=== PATIENT | female | born 1985 | race Caucasian/White ===

== ENCOUNTER 2020-02-01 09:06 | Inpatient (IN) | payer MEDICAID, OTHER ==
[~2020-02-01] VITALS: Ht 162.6 cm; Wt 156.2 kg
[2020-02-01] MEDS ORDERED: methylPREDNISolone SOD SUCC 125 MG/2 ML VL IV ONE (09:30)
[2020-02-01] MEDS ORDERED: IPRATROPIUM BROM 0.5 MG/2.5ML INH SOL HHN ONE (09:30)
[2020-02-01] MEDS ORDERED: ALBUTEROL SULF 2.5 MG/0.5ML(0.5%) NEB SOLN HHN ONE (09:30)
[2020-02-01] MEDS ORDERED: methylPREDNISolone SOD SUCC 125 MG/2 ML VL ONE (09:31)
[2020-02-01 10:27] LABS: Basophils # (auto) 0 10 ^3/uL (0-0.2); Eosinophils # (auto) 0 10 ^3/uL (0-0.8); Hemoglobin 13.4 g/dL (12.2-16.2); Lymphocytes # (auto) 1.1 10 ^3/uL (0.4-5.4); Monocytes # (auto) 0.5 10 ^3/uL (0-1.3)
[2020-02-01 10:29] LABS: Basophils % (auto) 0.3 % (0.0-2.0); Hematocrit 41.9 % (36.0-46.0); Mean Corpuscular Hemoglobin 25.2 pg (28.0-32.0); Mean Corpuscular Hgb Conc. 31.9 g/dL (32.0-36.0); Monocytes % (auto) 4.7 % (0.0-12.0); Neutrophils # (auto) 8.2 10 ^3/uL (1.6-8.6); Platelet Count (auto) 307 10^3/uL (140-450); Red Cell Distribution Width 16.3 % (11.8-14.3); White Blood Cell 9.7 10^3/uL (4.4-10.8)
[2020-02-01 10:37] LABS: Chloride 108 mmol/L (98-107); Sodium 137 mmol/L (136-145)
[2020-02-01 10:47] LABS: Alanine Aminotransferase 17 U/L (13-56); Albumin 2.9 g/dL (3.4-5.0); Alkaline Phosphatase 70 U/L (45-117); Anion Gap 7 (5-15); Aspartate Aminotransferase 15 U/L (15-37); BUN/Creatinine Ratio 7.4; Bilirubin, Total 0.5 mg/dL (0.2-1.0); Blood Urea Nitrogen 7 mg/dL (7-18); Calcium 8.2 mg/dL (8.5-10.1); Carbon Dioxide 22 mmol/L (21-32); GFR African American 86 mL/min; GFR Non-African American 71 mL/min; Glucose 100 mg/dL (74-106); Total Protein 7.1 g/dL (6.4-8.2)
[2020-02-01 11:10] LABS: Lactic Acid w/Reflex 2.6 mmol/L (0.4-2.0)
[2020-02-01] MEDS ORDERED: ACETAMINOPHEN 325 MG TAB PO ONE (11:30)
[2020-02-01] MEDS ORDERED: IOHEXOL 350 MG/ML 100ML IJ ONE ×2 (12:09→13:57)
[2020-02-01] MEDS ORDERED: MORPHINE SULF INJ 2 MG/ML SYRINGE 1ML IV PRN ×2 (12:30)
[2020-02-01] MEDS ORDERED: ONDANSETRON HCL 4 MG/2 ML VIAL IV PRN (12:30)
[2020-02-01] MEDS ORDERED: NITROGLYCERIN 0.4 MG SL TAB SL PRN (12:30)
[2020-02-01 12:41] VITALS: BP 160/61
[2020-02-01 12:57] LABS: Urine Bacteria NONE SEEN /hpf (None Seen); Urine Blood Negative /uL (Negative); Urine Specific Gravity 1.029 (1.001-1.035); Urine WBC <1 /hpf (0 - 5)
[2020-02-01] MEDS: SODIUM CHLORIDE 0.9% 1,000 ML IV SCH (14:05)
--- NOTE | 2020-02-01 14:33 | NUR ---
Telemetry admit from ER ZAYRAESTEFANY admitted to Telemetry unit after SBAR received. Patient oriented to Nisreen Odonnell RN, unit, room, bed, and unit policies regarding patient care and visiting hours. Patient now on continuous telemetry monitoring, tele box # 39 and telemetry reading on arrival to unit is 117 ST. Patient placed on bedside oxygen at 6 LPM, weighed by bed scale and encouraged to call if she needs something. All questions and concerns addressed, patient verbalized understanding. Note: Patient sitting up in bed, coughing/colds noted.
[2020-02-01 14:40] VITALS: BP 129/72
--- NOTE | 2020-02-01 15:00 | NUR ---
Called Respiratory Therapist for breathing treatment.
--- NOTE | 2020-02-01 15:10 | NUR ---
Damián Quick called back, made aware patient's O2 Sat = 89 to 90% on O2 at 6 LPM. Damián ordered Albuterol/Atrovent Q3 PRN for SOB, put on Oxymizer.
[2020-02-01] MEDS ORDERED: ALBUTEROL SULF 2.5 MG/0.5ML(0.5%) NEB SOLN NEB PRN (15:15)
[2020-02-01] MEDS ORDERED: IPRATROPIUM BROM 0.5 MG/2.5ML INH SOL NEB PRN (15:15)
--- NOTE | 2020-02-01 15:15 | NUR ---
RECD PAGE FOR BREATHING TX. PT ASSESSED AND IS SOB. PRN MED NEB ADMINISTERED ORDERED. LUNGS ARE DIMINISHED. NO ADVERSE REACTIONS TO MEDICATION. PT APPEARS ANXIOUS. COACHED ON DEEP SLOW BREATHING TECHNIQUES AFTER TX. PT APPEARS MORE COMFORTABLE. ALSO PLACED PT ON 10 LITERS OXYMIZER, SPO2 93%.
[2020-02-01 17:00] VITALS: BP 140/69
[2020-02-01] MEDS ORDERED: IPRATROPIUM BROM 0.5 MG/2.5ML INH SOL NEB SCH (18:00)
[2020-02-01] MEDS ORDERED: ALBUTEROL SULF 2.5 MG/0.5ML(0.5%) NEB SOLN NEB SCH (18:00)
--- NOTE | 2020-02-01 19:40 | NUR ---
OPENING NOTE- NOC SHIFT PATIENT IS ALERT AND ORIENTED X4 SITTING UP IN BED. PATIENT IS WEARING OXIMIZER AT 13.5L. PATIENT BREATHING HEAVILY. RT IS AT BEDSIDE ADMINISTERING BREATHING TREATMENT. PATIENT WILL BE TRANSFERRING TO [facility] PER MD ORDERS. BED IS LOCKED AT LOWEST, BED RAILS UP X2. PERSONAL BELONGINGS WITHIN REACH. DISCUSSED POC WITH PATIENT; PATIENT VERBALIZED UNDERSTANDING. WILL FOLLOW UP WITH TRANSFER TO [facility].
--- NOTE | 2020-02-01 19:45 | NUR ---
RT AT BEDSIDE
--- NOTE | 2020-02-01 20:00 | NUR ---
DR LAL AT BEDSIDE
--- NOTE | 2020-02-01 20:13 | NUR ---
INFORMED LIZA RESP THERAPIST TO CALL DR LAL PER REQUEST.
[2020-02-01] MEDS ORDERED: MAGNESIUM SULFATE 1GM/100ML 100 ML IV ONE (20:15)
[2020-02-01] MEDS ORDERED: ALBUTEROL SULF 2.5 MG/0.5ML(0.5%) NEB SOLN NEB ONE (20:15)
[2020-02-01] MEDS ORDERED: ALBUTEROL SULF 2.5 MG/0.5ML(0.5%) NEB SOLN ONE (20:16)
[2020-02-01] MEDS ORDERED: FUROSEMIDE 20 MG/2 ML VIAL IV ONE (20:30)
--- NOTE | 2020-02-01 20:45 | NUR ---
PT ADMITTED TO [facility] ASSUMED CARE OF PT. AWAKE AND ALERT. RT SET UP HIGH FLOW. PT ORIENTED TO RN AND CONNECTED TO BEDSIDE MONITOR. CALL LIGHT WITHIN REACH AND BED LOCKED. WILL CONTINUE TO MONITOR.
--- NOTE | 2020-02-01 20:49 | NUR ---
PATIENT TRANSFERRED TO [facility] REPORT GIVEN TO JAROD. ALL PERSONAL BELONGINGS WITH PATIENT. PATIENT IS ALERT AND ORIENTED X4.
[2020-02-01 21:03] VITALS: BP 138/64
[2020-02-01] MEDS: HYDROcodone-ACET 5/325MG TAB PO PRN (21:06)
[2020-02-01] MEDS: methylPREDNISolone SOD SUCC 125 MG/2 ML VL IV SCH (21:45)
[2020-02-01] MEDS ORDERED: BUDESONIDE (INHALATION) 0.5 MG/2 ML NEB NEB SCH (22:00)
[2020-02-01] MEDS: ALPRAZolam 0.25 MG TAB PO SCH (22:40)
[2020-02-01 22:43] VITALS: BP 111/42
[2020-02-01] MEDS: IPRATROPIUM BROM 0.5 MG/2.5ML INH SOL NEB SCH (22:52)
[2020-02-01] MEDS: ALBUTEROL SULF 2.5 MG/0.5ML(0.5%) NEB SOLN NEB SCH (22:52)
[2020-02-01] MEDS: BUDESONIDE (INHALATION) 0.5 MG/2 ML NEB NEB SCH (22:52)
[2020-02-02] VITALS (8 sets, daily range): BP systolic 103–155; BP diastolic 48–91
[2020-02-02] MEDS: SODIUM CHLORIDE 0.9% 1,000 ML IV SCH
[2020-02-02] MEDS: IPRATROPIUM BROM 0.5 MG/2.5ML INH SOL NEB SCH ×6 (02:22→22:23)
[2020-02-02] MEDS: ALBUTEROL SULF 2.5 MG/0.5ML(0.5%) NEB SOLN NEB SCH ×6 (02:22→22:23)
--- NOTE | 2020-02-02 03:47 | NUR ---
CURRENTLY RESTING CONNECTED TO HIGH FLOW DEVICE. APPEARS TO BE RESTING. WILL CONTINUE TO MONITOR.
[2020-02-02] MEDS: methylPREDNISolone SOD SUCC 125 MG/2 ML VL IV SCH ×3 (05:57→20:35)
[2020-02-02] MEDS: ALPRAZolam 0.25 MG TAB PO SCH ×3 (05:57→22:07)
--- NOTE | 2020-02-02 06:07 | NUR ---
MORNING LAB- STILL PENDING.
--- NOTE | 2020-02-02 06:38 | NUR ---
PT STILL ON HIGH FLOW 50% O2 AND 40 L.
--- NOTE | 2020-02-02 06:41 | NUR ---
PT COUGHING STATES HAVING DIFFICULT TIME CATCHING BREATH. CURRENTLY SITTING UP AND ON HIGH FLOW. NOTIFIED RT.
[2020-02-02] MEDS: BUDESONIDE (INHALATION) 0.5 MG/2 ML NEB NEB SCH ×2 (06:50→18:28)
--- NOTE | 2020-02-02 07:45 | NUR ---
OPENING SHIFT NOTE: Received report from NOC RNNikolai. Assumed care of patient. Patient lying in bed, A&Ox4, denies pain. Patient on high flow O2 at 50%O2/40L with O2 sats 94%. 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 IV to left FA #20 saline lock, flushes and no blood return. Patient with BSC at bedside and able to turn self. Bed in lowest position, rails x3 up and call light within reach. Updated on plan of care and will continue to monitor.
[2020-02-02 07:50] LABS: Basophils # (auto) 0 10 ^3/uL (0-0.2); Eosinophils # (auto) 0 10 ^3/uL (0-0.8); Hematocrit 40.3 % (36.0-46.0); Hemoglobin 12.9 g/dL (12.2-16.2); Lymphocytes # (auto) 0.5 10 ^3/uL (0.4-5.4); Lymphocytes % (auto) 5.8 % (10.0-50.0); Mean Corpuscular Hemoglobin 25.2 pg (28.0-32.0); Mean Corpuscular Hgb Conc. 31.9 g/dL (32.0-36.0); Monocytes # (auto) 0.1 10 ^3/uL (0-1.3); Monocytes % (auto) 1.6 % (0.0-12.0); Neutrophils % (auto) 92.6 % (37.0-80.0); Platelet Count (auto) 321 10^3/uL (140-450); Red Cell Distribution Width 16.1 % (11.8-14.3); White Blood Cell 8.7 10^3/uL (4.4-10.8)
[2020-02-02 08:42] LABS: Anion Gap 8 (5-15); BUN/Creatinine Ratio 12.8; Blood Urea Nitrogen 10 mg/dL (7-18); Calcium 8.6 mg/dL (8.5-10.1); Carbon Dioxide 22 mmol/L (21-32); Chloride 108 mmol/L (98-107); GFR African American 107 mL/min; GFR Non-African American 89 mL/min; Glucose 160 mg/dL (74-106); Magnesium 2.8 mg/dL (1.6-2.6); Potassium 4.6 mmol/L (3.5-5.1); Sodium 138 mmol/L (136-145)
[2020-02-02] MEDS: FAMOTIDINE 20 MG TAB PO SCH (09:50)
[2020-02-02] MEDS: ENOXAPARIN SOD 40 MG/0.4 ML SYRINGE SC SCH ×2 (09:50→22:12)
--- NOTE | 2020-02-02 09:55 | NUR ---
Patient provided 1000 AM medications. Verified patient and ID band. Explained rationale for medication administration. Patient verbalized understanding and tolerated medications,
--- NOTE | 2020-02-02 12:07 | NUR ---
Dr Elder at bedside. Orders received.
[2020-02-02] MEDS ORDERED: amLODIPine BESYLATE 5 MG TAB PO ONE (12:15)
--- NOTE | 2020-02-02 12:15 | NUR ---
Spoke to Dr Lemons over the phone, updated on patient's status. Informed of patient's RR 30'-40's, saturation 90% - 96% at 40LPM oxygen, 50% FIO2 via Hi flow. Received telephone order to place patient on BIPAP and check ABG two hours after. Orders read back and verified. Will carry out.
--- NOTE | 2020-02-02 13:45 | NUR ---
Echocardiogram being done at bedside.
--- NOTE | 2020-02-02 14:23 | NUR ---
Assisted patient back into bed after using bedside commode. Patient states she feels like Bipap is suffocatig her. Respiratory rate is in the 40s. Respiratory paged. Dr Elder notified and orders received for beltran catheter.
--- NOTE | 2020-02-02 15:25 | NUR ---
Patient resting in bed with eyes closed. No signs/symptoms of pain. Patient remains on Bipap with resp rate 34. Patient awaiting to have ABG 2 hours post bipap initiation.
--- NOTE | 2020-02-02 15:35 | NUR ---
Dr Lemons at bedside to see patient. Orders received.
[2020-02-02] MEDS ORDERED: ALBUTEROL SULF 2.5 MG/0.5ML(0.5%) NEB SOLN NEB ONE (16:00)
--- NOTE | 2020-02-02 16:13 | NUR ---
16fr Hopkins catheter inserted using sterile technique. 100ml clear yellow urine returned upon insertion. Patient tolerated well.
--- NOTE | 2020-02-02 16:59 | NUR ---
Patient remains on Bipap 14/6 at 40% fiO2 with RR 35 and O2 sats 97%. Hopkins in place draining to gravity, clear yellow urine. Patient with no S/S of distress, denies pain.
--- NOTE | 2020-02-02 17:53 | NUR ---
T/C from pharmacist who wants clarification on magnesium order from Dr Lemons. Spoke to Dr Lemons who wants 2mg Magnesium Sulfate to help with patient's asthma and to draw a mag level in the am. Relayed info to pharmacist.
[2020-02-02] MEDS: MAGNESIUM SULFATE 1GM/100ML 100 ML IV SCH ×2 (18:06→19:30)
[2020-02-02] MEDS: HYDROcodone-ACET 5/325MG TAB PO PRN (18:19)
--- NOTE | 2020-02-02 18:45 | NUR ---
Patient resting in bed and was recently medicated for pain. Patient remains on Bipap 14/6 with fiO2 40% with O2 sats at 96%. Patient with beltran to gravity draining clear yellow UOP. First bag of two, 1gm MagSulfate running in left AC #20. Report to be given to NOC Nikolai MENDEZ.
--- NOTE | 2020-02-02 19:20 | NUR ---
Opening Shift Note ASSUMED CARE OF PT IN ROOM 265. PT IS AWAKE AND ALERT. CONNECTED TO BIPAP MACHINE. COMPLETE PHYSICAL ASSESSMENT UNDER INTERVENTIONS.WILL CONTINUE TO MONITOR FOR CHANGES. BED LOCKED AT LOWEST POSITION AND CALL LIGHT WITHIN REACH.
[2020-02-02] MEDS ORDERED: methylPREDNISolone SOD SUCC 125 MG/2 ML VL IV SCH (22:00)
[2020-02-03] VITALS (7 sets, daily range): BP systolic 25–142; BP diastolic 60–83
[2020-02-03] MEDS: methylPREDNISolone SOD SUCC 125 MG/2 ML VL IV SCH ×4 (00:26→18:17)
--- NOTE | 2020-02-03 01:20 | NUR ---
PT APPEARS TO BE RESTING NO CHANGES NOTED. CONNECTED TO HIGH FLOW DEVICE. WILL CONTINUE TO MONITOR.
--- NOTE | 2020-02-03 02:13 | NUR ---
RT WITH PATIENT INCREASED O2 AND FLOW RATE.
[2020-02-03] MEDS: IPRATROPIUM BROM 0.5 MG/2.5ML INH SOL NEB SCH ×6 (02:15→21:54)
[2020-02-03] MEDS: ALBUTEROL SULF 2.5 MG/0.5ML(0.5%) NEB SOLN NEB SCH ×6 (02:15→21:54)
--- NOTE | 2020-02-03 04:17 | NUR ---
PT RESTING DOES NOT WANT BATH. STATING SHE WANTS TO REST AT THE MOMENT HAS HAD DIFFICULTY SLEEPING.
--- NOTE | 2020-02-03 04:35 | NUR ---
RT WITH PT STILL ON HIGH FLOW.
[2020-02-03] MEDS: BUDESONIDE (INHALATION) 0.5 MG/2 ML NEB NEB SCH ×2 (05:52→18:21)
[2020-02-03] MEDS: ALPRAZolam 0.25 MG TAB PO SCH ×3 (06:17→21:22)
--- NOTE | 2020-02-03 07:43 | NUR ---
CARE ENDORSED TO DAY NURSE REPORT GIVEN.
--- NOTE | 2020-02-03 08:00 | NUR ---
RECEIVED REPORT FROM NOC ANDREA OLIVERA. ASSUMED CARE OF PATIENT. PATIENT LYING IN BED, A&OX4 AND STATES PAIN IS 7/10 TO NECK AND LOWER BACK AND WILL BE MEDICATED WITH NORCO ORDERED. PATIENT ON HIGH FLOW AT FIO2 60% AND 45L WITH O2 SATS 96%. MUSE DRAINING TO GRAVITY CLEAR YELLOW URINE. PATIENT WITH PIV TO LEFT AC #20 THAT FLUSHES BUT DOESN'T RETURN BLOOD. BED IS IN LOWEST POSITION, RAILS X2 UP, ALARMS IN PLACE AND CALL LIGHT WITHIN REACH. UPDATED ON PLAN OF CARE. WILL CONTINUE TO MONITOR.
[2020-02-03] MEDS: HYDROcodone-ACET 5/325MG TAB PO PRN ×2 (08:21→23:01)
--- NOTE | 2020-02-03 09:00 | NUR ---
PATIENT RESTING IN BED ON HIGH FLOW O2 AT 60% AND 45L WITH SATS 92%. PATIENT WITH NO S/S OF DISTRESS. STATES PAIN IS RELIEVED AFTER NORCO.
[2020-02-03] MEDS: ENOXAPARIN SOD 40 MG/0.4 ML SYRINGE SC SCH ×2 (10:07→21:22)
[2020-02-03] MEDS: amLODIPine BESYLATE 5 MG TAB PO SCH (10:07)
[2020-02-03] MEDS: FAMOTIDINE 20 MG TAB PO SCH (10:08)
[2020-02-03] MEDS: cefTRIAXone 1GM/50ML D5W 50 ML IV SCH (10:14)
--- NOTE | 2020-02-03 10:15 | NUR ---
MEDICATED PATIENT WITH 1000 AM MEDICATION. VERIFIED PATIENT AND FIVE RIGHTS. EXPLAINED RATIONALE OF EACH MEDICATION AND PATIENT VERBALIZED UNDERSTANDING. PATIENT TOLERATED MEDICATIONS WITH NO DIFFICULTY. WILL CONTINUE TO MONITOR.
--- NOTE | 2020-02-03 11:15 | NUR ---
DR NAJERA TO SEE PATIENT. ORDERS RECEIVED.
[2020-02-03 11:46] LABS: BUN/Creatinine Ratio 17.7; Calcium 8.5 mg/dL (8.5-10.1); Potassium 5.2 mmol/L (3.5-5.1)
--- NOTE | 2020-02-03 12:29 | NUR ---
BMP RESULTS BACK. NOTIFIED DR NAJERA VIA TELEPHONE OF K 5.2. MD STATES WILL LOOK AT AND ADDRESS NEEDED.
[2020-02-03] MEDS ORDERED: FUROSEMIDE 40 MG/4 ML VIAL IV ONE (12:30)
[2020-02-03] MEDS ORDERED: SODIUM CHLORIDE 0.9% 500 ML IV ONE (12:30)
--- NOTE | 2020-02-03 13:00 | NUR ---
STARTED 500ML NS BOLUS TO LEFT AC. PATIENT STATES SHE CAN'T TOLERATE AT OF 500ML/HR, DECREASED RATE TO 250ML/HR. IV SITE REMAINS ASYMPTOMATIC. WILL CONTINUE TO MONITOR.
--- NOTE | 2020-02-03 14:08 | NUR ---
PATIENT IV TO LEFT AC INFILTRATED. SITE IS COOL AND FIRM TO TOUCH. HELD IV FLUID BOLUS. PATIENT IS A DIFFICULT STICK. PAGED PICC LINE/MIDLINE RN RAMIN TO ATTEMPT A MIDLINE INSERTION.
--- NOTE | 2020-02-03 15:07 | NUR ---
PAGED PLACE TO DR NAJERA TO UPDATE MD OF LOST IV AND NEED FOR MIDLINE.
--- NOTE | 2020-02-03 15:38 | NUR ---
RAMIN PICC LINE RN AT BEDSIDE TO ATTEMPT TO START A MIDLINE OR ADDITIONAL IV.
--- NOTE | 2020-02-03 15:52 | NUR ---
Midline Placement: Patient educated on need for midline placement. All risks and benefits explained and all questions and concerns addresses prior to procedure. 18g/10cm midline inserted via LEFT CEPHALIC vein using Ultrasound. Sterile technique utilized. Blood return obtained from SINGLE lumen and flushed easily with NS using proper technique. Midline secured with saline lock; biodisc and occlusive dressing applied. Primary RN notified. Midline lot # [id number].
--- NOTE | 2020-02-03 16:50 | NUR ---
PATIENT HAVING A COUGHING FIT AND UNABLE TO CATCH BREATH. PATIENT REQUESTING TO BE PLACED BACK ON BIPAP. RT TREMAYNE CALLED AND PLACED BACK ON BIPAP AT 14/6 AND FIO2 40%.
--- NOTE | 2020-02-03 18:23 | NUR ---
RT NOTE RECEIVED PT ON BIPAP B10 WITH MEDIUM MASK ON STATED SETTINGS. BIPAP IS PLUGGED TO RED OUTLET. ALARMS ARE ON AND AUDIBLE AT NURSES STATION. AMBU BAG AT BEDSIDE AND CONNECTED TO O2 SOURCE. CONT POX PER [facility] PROTOCOL. BILATERAL BS ARE EXPIRATORY WHEEZES. HHN GIVEN INLINE WITH 2.5 MG ALBUTEROL, 0.5 MG ATROVENT AND 1 MG PULMICORT. PT APPEARS TO TOLERATE HHN TX WELL. CONT ORDERED POX 93% Addendum: 02/03/20 at 1840 by Ale Westbrook RT Amended: Links added.
--- NOTE | 2020-02-03 18:45 | NUR ---
PATIENT RESTING IN BED ON BIPAP 14/6 AT FIO2 40%. PATIENT REMAINS A&OX4 AND DENIES PAIN. PATIENT'S PAIN HAS BEEN CONTROLLED THROUGHOUT SHIFT WITH NORCO. MUSE CONTINUES TO DRAIN TO GRAVITY CLEAR YELLOW OUTPUT. REPORT TO BE GIVEN TO JAY RODRIGUEZ RN.
--- NOTE | 2020-02-03 19:45 | NUR ---
Opening Shift Note: A&Ox4, resting in bed. Currently on high flow FiO2 of 60%; patient states she does not wear oxygen at home; pain level 4/10, and at baseline ambulates independently without assistive devices; currently bedrest related to increased shortness of breath with exertion. Bed locked in lowest position, side rails up x2, and call light within reach. IV midline LUE inserted on 02/03/20. Hopkins inserted on 02/02/20 for strict I/O. Skin intact with no open wounds. Intermittent use of Bipap noted. POC discussed with patient and questions answered. Will continue to round and reposition prn.
--- NOTE | 2020-02-03 21:58 | NUR ---
RT NOTE PT WAS SEEN BY RT FOR ROUTINE HIGH FLOW CHECK AND HHN TX. PT TOLERATES HHN INLINE WELL VIA AEROGEN. FIO2 TITRATED TO 55% AT THIS TIME. ANDREA THOMPSON NOTIFIED. PT APPEARS TO TOLERATE WELL. BS ARE CLEAR/DIM AT THIS TIME. CONT ORDERED Addendum: 02/03/20 at 2159 by Ale Westbrook RT Amended: Links added.
[2020-02-04] VITALS (10 sets, daily range): BP systolic 123–152; BP diastolic 69–85
[2020-02-04] MEDS: IPRATROPIUM BROM 0.5 MG/2.5ML INH SOL NEB SCH ×6 (02:30→23:23)
[2020-02-04] MEDS: ALBUTEROL SULF 2.5 MG/0.5ML(0.5%) NEB SOLN NEB SCH ×6 (02:30→23:22)
--- NOTE | 2020-02-04 05:30 | NUR ---
Patient bathe/linen change Patient given complete CHG bath. Skin integrity assessed for any changes. Linens and gown changed. Patient repositioned for comfort.
[2020-02-04 06:00] LABS: BUN/Creatinine Ratio 25.3; Calcium 8.1 mg/dL (8.5-10.1); Potassium 4.6 mmol/L (3.5-5.1)
[2020-02-04] MEDS: ALPRAZolam 0.25 MG TAB PO SCH ×3 (06:00→21:09)
[2020-02-04] MEDS: methylPREDNISolone SOD SUCC 125 MG/2 ML VL IV SCH ×5 (06:00→23:42)
--- NOTE | 2020-02-04 07:30 | NUR ---
RECEIVED PATIENT SITTING UP IN THE BED, A/O TIME S4 TO NAME BEING CALLED, O2 AT 45L BY THE HIGH FLOW, MUSE TO GRAVITY, MIDLINE TO THE ANA WITH ANTIBIOTICS INFUSING BY THE IV PUMP, DENIES PAIN AND STATES SHE FEELS BETTER TODAY
[2020-02-04] MEDS: cefTRIAXone 1GM/50ML D5W 50 ML IV SCH (08:31)
--- NOTE | 2020-02-04 08:35 | NUR ---
EATING BREAKFAST BUT ATE VERY LITTLE
--- NOTE | 2020-02-04 09:45 | NUR ---
DR LAL IN TO SEE THE PATIENT
[2020-02-04] MEDS: amLODIPine BESYLATE 5 MG TAB PO SCH (10:05)
--- NOTE | 2020-02-04 10:05 | NUR ---
EXPLAIN MEDICATIONS TO THE PATIENT REGARDING THE DOSAGE, USAGE, AND THE SIDE EFFECTS, VERBALIZED THAT SHE UNDERSTOOD AND MMES GIVEN ORDERED
[2020-02-04] MEDS: ENOXAPARIN SOD 40 MG/0.4 ML SYRINGE SC SCH ×2 (10:06→21:09)
[2020-02-04] MEDS: FAMOTIDINE 20 MG TAB PO SCH (10:06)
--- NOTE | 2020-02-04 10:20 | NUR ---
FRIENDS IN TO VISIT
[2020-02-04] MEDS: BUDESONIDE (INHALATION) 0.5 MG/2 ML NEB NEB SCH ×2 (10:29→19:16)
--- NOTE | 2020-02-04 11:30 | NUR ---
SITTING UP IN BED WATCHING TV,
--- NOTE | 2020-02-04 12:15 | NUR ---
DR NAJERA IN TO SEE THE PATIENT,
--- NOTE | 2020-02-04 13:46 | NUR ---
SITTING UP IN BED EATING HER LUNCH NO COMPLAINTS
--- NOTE | 2020-02-04 14:30 | NUR ---
RT IN WORKING WITH THE PATIENT
--- NOTE | 2020-02-04 15:30 | NUR ---
WATCHING TV, NO COMPLAINTS
--- NOTE | 2020-02-04 16:17 | NUR ---
SEMI FOWLERS IN BED WITH EYES CLOSED, NO COMPLAINTS
--- NOTE | 2020-02-04 17:07 | NUR ---
SITTING UP IN BED ,FAMILY IN TO VISIT
[2020-02-04] MEDS: HYDROcodone-ACET 5/325MG TAB PO PRN (18:02)
--- NOTE | 2020-02-04 18:02 | NUR ---
MEDICATED FOR PAIN TO THE BACK WITH NORCO 06/09, SITTING UP IN THE BED, WATCHING TV, O2 AT 45L AND 44% BY THE HIGH FLOW, MUSE TO GRAVITY, ANA MIDLINE FLUSHED AND PATENT, WATCHING TV, ABLE TO TURN SELF IN THE BED, WILL CONTINUE TO MONITOR AND GIVE REPORT TO THE NEXT SHIFT
--- NOTE | 2020-02-04 18:26 | NUR ---
SITTING UP IN THE BED TO EAT HER DINNER, AND FAMILY AT THE BEDSIDE
--- NOTE | 2020-02-04 19:45 | NUR ---
Opening Shift Note: A&Ox4, resting in bed. Currently on high flow FiO2 of 40%/45 L; patient states she does not wear oxygen at home; pain level 2/10, and at baseline ambulates independently without assistive devices; currently SBA pivot to the chair related to increased shortness of breath with exertion. Bed locked in lowest position, side rails up x2, and call light within reach. IV midline LUE inserted on 02/03/20. Hopkins inserted on 02/02/20 for strict I/O. Skin intact with no open wounds. Intermittent use of Bipap noted. POC discussed with patient and questions answered. Will continue to round and reposition prn.
[2020-02-05] VITALS (7 sets, daily range): BP systolic 132–141; BP diastolic 74–83
[2020-02-05] MEDS: HYDROcodone-ACET 5/325MG TAB PO PRN ×4 (01:29→22:51)
[2020-02-05] MEDS: ALBUTEROL SULF 2.5 MG/0.5ML(0.5%) NEB SOLN NEB SCH ×6 (02:00→21:57)
[2020-02-05] MEDS: IPRATROPIUM BROM 0.5 MG/2.5ML INH SOL NEB SCH ×6 (02:00→21:57)
--- NOTE | 2020-02-05 05:00 | NUR ---
Patient bathe/linen change Patient given complete CHG bath. Skin integrity assessed for any changes. Linens and gown changed. Patient repositioned for comfort.
[2020-02-05 05:47] LABS: Basophils # (auto) 0 10 ^3/uL (0-0.2); Basophils % (auto) 0.3 % (0.0-2.0); Eosinophils # (auto) 0 10 ^3/uL (0-0.8); Hematocrit 40.1 % (36.0-46.0); Hemoglobin 13.1 g/dL (12.2-16.2); Lymphocytes # (auto) 0.7 10 ^3/uL (0.4-5.4); Lymphocytes % (auto) 10.6 % (10.0-50.0); Mean Corpuscular Hemoglobin 25.9 pg (28.0-32.0); Mean Corpuscular Hgb Conc. 32.7 g/dL (32.0-36.0); Monocytes # (auto) 0.2 10 ^3/uL (0-1.3); Monocytes % (auto) 2.4 % (0.0-12.0); Neutrophils # (auto) 5.5 10 ^3/uL (1.6-8.6); Neutrophils % (auto) 86.7 % (37.0-80.0); Platelet Count (auto) 244 10^3/uL (140-450); Red Blood Cells 5.08 10^6/uL (4.0-5.20); Red Cell Distribution Width 15.4 % (11.8-14.3); White Blood Cell 6.4 10^3/uL (4.4-10.8)
[2020-02-05 06:01] LABS: BUN/Creatinine Ratio 25.6; Calcium 8.3 mg/dL (8.5-10.1); Potassium 4.8 mmol/L (3.5-5.1)
[2020-02-05] MEDS: methylPREDNISolone SOD SUCC 125 MG/2 ML VL IV SCH ×3 (06:13→18:37)
[2020-02-05] MEDS: ALPRAZolam 0.25 MG TAB PO SCH ×3 (06:14→21:28)
--- NOTE | 2020-02-05 07:10 | NUR ---
OPENING NOTE SHIT REPORT RECEIVED AND ASSUMED CARE OF PT FROM JAY
[2020-02-05] MEDS: BUDESONIDE (INHALATION) 0.5 MG/2 ML NEB NEB SCH ×2 (07:14→17:58)
[2020-02-05] MEDS: cefTRIAXone 1GM/50ML D5W 50 ML IV SCH (09:23)
[2020-02-05] MEDS: ENOXAPARIN SOD 40 MG/0.4 ML SYRINGE SC SCH ×2 (09:31→21:28)
[2020-02-05] MEDS: amLODIPine BESYLATE 5 MG TAB PO SCH (09:33)
[2020-02-05] MEDS: FAMOTIDINE 20 MG TAB PO SCH (09:34)
--- NOTE | 2020-02-05 11:23 | NUR ---
DR. RIBERA AT BEDSIDE ORDERS RECEIVED
[2020-02-05] MEDS ORDERED: FUROSEMIDE 40 MG/4 ML VIAL IV ONE (11:30)
[2020-02-05] MEDS ORDERED: POTASSIUM CHL 20 Meq TABLET PO ONE (15:00)
--- NOTE | 2020-02-05 15:00 | NUR ---
DR. SHIPMAN AT BEDSIDE ORDERS RECEIVED
--- NOTE | 2020-02-05 19:21 | NUR ---
CLOSING NOTE SHIFT REPORT GIVE BACK AND CARE ENDORSED TO JAY MENDEZ
--- NOTE | 2020-02-05 19:45 | NUR ---
Opening Shift Note: A&Ox4, resting in bed. Currently on high flow FiO2 of 45%/45 L; patient states she does not wear oxygen at home; pain level 2/10, and at baseline ambulates independently without assistive devices; currently SBA pivot to the chair related to increased shortness of breath with exertion. Bed locked in lowest position, side rails up x2, and call light within reach. IV midline LUE inserted on 02/03/20. Hopkins inserted on 02/02/20 for strict I/O. Skin intact with no open wounds. Intermittent use of Bipap noted. POC discussed with patient and questions answered. Will continue to round and reposition prn.
[2020-02-06] VITALS: BP 110/56
[2020-02-06] MEDS: methylPREDNISolone SOD SUCC 125 MG/2 ML VL IV SCH ×3 (00:07→12:23)
[2020-02-06] MEDS: ALBUTEROL SULF 2.5 MG/0.5ML(0.5%) NEB SOLN NEB SCH ×6 (03:13→22:02)
[2020-02-06] MEDS: IPRATROPIUM BROM 0.5 MG/2.5ML INH SOL NEB SCH ×6 (03:13→22:02)
[2020-02-06 04:00] VITALS: BP 96/50
--- NOTE | 2020-02-06 06:30 | NUR ---
Patient bathe/linen change Patient given complete CHG bath. Skin integrity assessed for any changes. Linens and gown changed. Patient repositioned for comfort.
[2020-02-06 06:33] LABS: Basophils # (auto) 0 10 ^3/uL (0-0.2); Basophils % (auto) 0.1 % (0.0-2.0); Eosinophils # (auto) 0 10 ^3/uL (0-0.8); Hematocrit 42.4 % (36.0-46.0); Hemoglobin 13.6 g/dL (12.2-16.2); Lymphocytes # (auto) 0.6 10 ^3/uL (0.4-5.4); Lymphocytes % (auto) 10.3 % (10.0-50.0); Mean Corpuscular Hemoglobin 25.3 pg (28.0-32.0); Mean Corpuscular Hgb Conc. 32.1 g/dL (32.0-36.0); Mean Corpuscular Volume 78.9 fL (80.0-100.0); Monocytes # (auto) 0.1 10 ^3/uL (0-1.3); Monocytes % (auto) 2.5 % (0.0-12.0); Neutrophils # (auto) 4.7 10 ^3/uL (1.6-8.6); Neutrophils % (auto) 87.1 % (37.0-80.0); Nucleated Red Blood Cells % 0.1 %; Platelet Count (auto) 204 10^3/uL (140-450); Red Blood Cells 5.38 10^6/uL (4.0-5.20); Red Cell Distribution Width 15.4 % (11.8-14.3); White Blood Cell 5.4 10^3/uL (4.4-10.8)
[2020-02-06] MEDS: ALPRAZolam 0.25 MG TAB PO SCH ×3 (06:38→21:58)
[2020-02-06 06:52] LABS: Calcium 8.2 mg/dL (8.5-10.1); Potassium 4.4 mmol/L (3.5-5.1)
[2020-02-06 06:55] LABS: BUN/Creatinine Ratio 28.4
[2020-02-06] MEDS: BUDESONIDE (INHALATION) 0.5 MG/2 ML NEB NEB SCH ×2 (07:27→18:30)
--- NOTE | 2020-02-06 07:45 | NUR ---
RECEIVED REPORT FROM NOC RNJAY. ASSUMED CARE OF PATIENT. PATIENT LYING COMFORTABLY IN BED, A&OX4, DENIES PAIN. PATIENT ON HIGH FLOW O2 AT 45%/45L WITH O2 SATS 90%. LEFT UPPER ARM MIDLINE IN PLACE WHICH FLUSHES AND RETURNS BLOOD. MUSE DRAINING TO GRAVITY CLEAR YELLOW URINE. BED IN LOWEST POSITION, RAILS X2 UP, ALARMS IN PLACE AND CALL LIGHT WITHIN REACH. UPDATED ON PLAN OF CARE. WILL CONTINUE TO MONITOR Q1HR/PRN.
[2020-02-06 07:52] VITALS: BP 146/82
[2020-02-06] MEDS: cefTRIAXone 1GM/50ML D5W 50 ML IV SCH (09:12)
--- NOTE | 2020-02-06 10:30 | NUR ---
PATIENT RESTING IN BED. NO S/S OF DISTRESS. WILL CONTINUE TO MONITOR.
[2020-02-06] MEDS: ENOXAPARIN SOD 40 MG/0.4 ML SYRINGE SC SCH ×2 (10:33→21:57)
[2020-02-06] MEDS: FAMOTIDINE 20 MG TAB PO SCH (10:33)
[2020-02-06] MEDS: FUROSEMIDE 40 MG/4 ML VIAL IV SCH (10:33)
[2020-02-06] MEDS: POTASSIUM CHL 20 Meq TABLET PO SCH (10:33)
--- NOTE | 2020-02-06 11:39 | NUR ---
FOOD SERVICE HELPER AT BEDSIDE.
[2020-02-06 12:00] VITALS: BP 141/68
--- NOTE | 2020-02-06 14:27 | NUR ---
DR SHIPMAN AT BEDSIDE AND EXAMINED PATIENT.
[2020-02-06] MEDS: HYDROcodone-ACET 5/325MG TAB PO PRN (15:41)
--- NOTE | 2020-02-06 15:45 | NUR ---
PATIENT C/O PAIN TO NECK AND BACK / ALONG WITH UNEASINESS TO STOMACH. PATIENT ASKING WHEN SHE CAN RECEIVE PEPCID AGAIN. INFORMED PATIENT SHE WILL GET PEPCID AGAIN AT 2200 AND OFFERED CRACKERS TO HELP WITH STOMACH. PATIENT REFUSED CRACKERS AND SAID SHE CAN TOLERATE PAIN MEDICATION ALONE.
[2020-02-06 15:58] VITALS: BP 133/79
[2020-02-06] MEDS: FERROUS SULFATE 325 MG TAB PO SCH (17:48)
--- NOTE | 2020-02-06 18:42 | NUR ---
PATIENT SITTING UP IN BED EATING DINNER. NO S/S OF DISTRESS. PATIENT DENIES PAIN. PATIENT REMAINS ON HIGH FLOW O2 AT FIO2 45% ON 45L. MUSE CONTINUES TO DRAIN TO GRAVITY CLEAR YELLOW URINE. PATIENT IS ABLE TO TOLERATE GETTING OUT OF BED TO BSC WITHOUT GETTING OVER EXERTED. REPORT TO BE GIVEN TO ONCOMING RN.
--- NOTE | 2020-02-06 19:30 | NUR ---
Opening Shift Note A&Ox4, resting in bed. Currently on high flow FiO2 of 45%/45 L; pain level 310, currently standby assist pivot to the chair related to increased shortness of breath with exertion. Bed locked in lowest position, side rails up x2, and call light within reach. IV midline LUE inserted on 02/03/20. Hopkins inserted on 02/02/20 for strict I/O. Skin intact with no open wounds. POC discussed with patient and questions answered. Will continue to round and reposition PRN
[2020-02-06 20:00] VITALS: BP 140/73
[2020-02-06] MEDS: methylPREDNISolone SOD SUCC 40 MG/ML VL IV SCH (21:56)
[2020-02-06] MEDS: METOPROLOL TARTRATE 25 MG TAB PO SCH ×2 (21:58→22:00)
--- NOTE | 2020-02-06 22:00 | NUR ---
MEDICATION Scheduled medication Metoprolol for 2200 held at this time due to patient having history of heart rate dropping into 40s while sleeping. 2200 Metoprolol not administered (see emar). Will continue to monitor
[2020-02-07] VITALS (9 sets, daily range): BP systolic 113–133; BP diastolic 53–81
[2020-02-07] MEDS: IPRATROPIUM BROM 0.5 MG/2.5ML INH SOL NEB SCH ×6 (02:21→22:20)
[2020-02-07] MEDS: ALBUTEROL SULF 2.5 MG/0.5ML(0.5%) NEB SOLN NEB SCH ×6 (02:22→22:20)
[2020-02-07] MEDS: methylPREDNISolone SOD SUCC 40 MG/ML VL IV SCH ×3 (03:44→20:39)
[2020-02-07] MEDS: ALPRAZolam 0.25 MG TAB PO SCH ×3 (06:10→21:12)
[2020-02-07 06:22] LABS: Potassium 4.5 mmol/L (3.5-5.1)
[2020-02-07 06:31] LABS: BUN/Creatinine Ratio 26.7; Calcium 8.2 mg/dL (8.5-10.1)
--- NOTE | 2020-02-07 07:30 | NUR ---
RECEIVED PATIENT SITTING UP IN THE BED, A/O TIMES 4, TO NAME BEING CALLED, O2 AT 45L AND 40% ON THE HIGH FLOW, MID LINE TO THE ANA FLUSHED AND PATENT, MUSE TO GRAVITY, DENIES PAIN, BUT STATES A LITTLE TIRED THIS MORNING
[2020-02-07] MEDS: FERROUS SULFATE 325 MG TAB PO SCH ×2 (08:21→17:51)
[2020-02-07] MEDS: cefTRIAXone 1GM/50ML D5W 50 ML IV SCH (08:22)
--- NOTE | 2020-02-07 08:30 | NUR ---
EATING BREAKFAST NO SOB NOTED
[2020-02-07] MEDS: POTASSIUM CHL 20 Meq TABLET PO SCH (10:00)
[2020-02-07] MEDS: FUROSEMIDE 40 MG/4 ML VIAL IV SCH (10:00)
[2020-02-07] MEDS: METOPROLOL TARTRATE 25 MG TAB PO SCH ×2 (10:00→20:40)
[2020-02-07] MEDS: FAMOTIDINE 20 MG TAB PO SCH (10:00)
[2020-02-07] MEDS: ENOXAPARIN SOD 40 MG/0.4 ML SYRINGE SC SCH ×2 (10:00→21:12)
--- NOTE | 2020-02-07 10:00 | NUR ---
EXPLAIN MEDICATIONS TO THE PATIENT REGARDING THE DOSAGE, USAGE AND THE SIDE EFFECTS, VERBALIZED SHE UNDERSTOOD AND MEDS GIVEN ORDERED
--- NOTE | 2020-02-07 10:30 | NUR ---
FAMILY IN TO VISIT WITH THE PATIENT
[2020-02-07] MEDS: BUDESONIDE (INHALATION) 0.5 MG/2 ML NEB NEB SCH ×2 (10:54→22:21)
--- NOTE | 2020-02-07 10:55 | NUR ---
BREATHING TREATMENT BEING GIVEN
--- NOTE | 2020-02-07 11:00 | NUR ---
STARTING TO WEAN THE PATIENT OFF THE HIGH FLOW DECREASED 30L AND 40%
--- NOTE | 2020-02-07 11:40 | NUR ---
DR LAL IN TO SEE THE PATIENT AND WROTE TO START WEANING THE PATIENT OFF THE HIGH FLOW
--- NOTE | 2020-02-07 12:15 | NUR ---
FRIENDS BROUGHT IN LUNCH FOR THE PATIENT, REFUSED THE HOSPITAL 'S FOOD
--- NOTE | 2020-02-07 13:30 | NUR ---
PATIENT TALKING TO FRIENDS STATES SHE IS DOING OKAY
--- NOTE | 2020-02-07 14:28 | NUR ---
HIGH FLOW A 20L AND 40% FIO2
--- NOTE | 2020-02-07 14:50 | NUR ---
HIGH FLOW CHANGED TO 40% AND 30L
--- NOTE | 2020-02-07 15:15 | NUR ---
LYING IN BED WATCHNG TV,
--- NOTE | 2020-02-07 16:10 | NUR ---
PATIENTS EYES CLOSED LYING IN BED
--- NOTE | 2020-02-07 17:05 | NUR ---
SITTING UP IN BED WATCHING TV
--- NOTE | 2020-02-07 18:11 | NUR ---
Respiratory note: RECEIVED PT ON HFNC UNIT, UNIT CONNECTED TO RED OUTLET, O2 AND MEDICAL AIR WALL SOURCE, OLIVE WATER LEVEL GOOD AT THIS TIME. MED NEB TX GIVEN INLINE VIA AEROGEN, WITHOUT ADVERSE REACTION NOTED. RT NAME AND PAGER ASSIGNMENT WRITTEN ON PTS ROOM BOARD. WILL CONTINUE TO MONITOR,
--- NOTE | 2020-02-07 18:35 | NUR ---
GOTTEN UP SITTING ON THE SIDE OF THE BED, 2 BY THE HIGH FLOW AT 30L AND 40%, MUSE TO GRAVITY, MIDLINE TO THE ANA INTACT FLUSHED AND PATENT, NO COMPLAINTS OF PAIN, OR SOB, WILL CONTINUE TO MONITOR AND GIVE REPORT TO THE NEXT SHIFT
--- NOTE | 2020-02-07 19:30 | NUR ---
Opening Shift Note A&Ox4, sitting in the chair. Currently on high flow FiO2 of 45%/35 L; pain level 0/10. Call light within reach, informed patient to use call light for assist back to bed, verbalized understanding. IV midline LUE inserted on 02/03/20. Hopkins inserted on 02/02/20 for strict I/O. Skin intact with no open wounds. POC discussed with patient and questions answered. Will continue to round Q1hr and PRN
[2020-02-08] VITALS (9 sets, daily range): BP systolic 107–137; BP diastolic 46–87
[2020-02-08] MEDS: IPRATROPIUM BROM 0.5 MG/2.5ML INH SOL NEB SCH ×6 (02:11→22:36)
[2020-02-08] MEDS: ALBUTEROL SULF 2.5 MG/0.5ML(0.5%) NEB SOLN NEB SCH ×6 (02:11→22:36)
--- NOTE | 2020-02-08 02:11 | NUR ---
Respiratory note: ROUTINE HFNC CHECK. MED TX GIVEN INLINE HFNC VIA AEROGEN. NO CHANGES MADE, WILL CONTINUE TO MONITOR.
[2020-02-08] MEDS: methylPREDNISolone SOD SUCC 40 MG/ML VL IV SCH ×3 (04:02→20:22)
[2020-02-08] MEDS: ALPRAZolam 0.25 MG TAB PO SCH ×2 (05:20→13:48)
[2020-02-08] MEDS: ACETAMINOPHEN 500 MG TAB PO PRN ×2 (05:23→11:59)
--- NOTE | 2020-02-08 07:30 | NUR ---
RECEIVED PATIENT LYING IN BED, AWAKEN TO NAME BEING CALLED A/O TIMES 4,, O2 AT 30L AND 40% ON THE HIGH FLOW, MUSE TO GRAVITY, MID LINE TO THE ANA 18G FLUSHED AND PATENT, GETS UP TO THE BSC NO HELP NEEDED, DENIES PAIN AT THIS TIME
--- NOTE | 2020-02-08 07:39 | NUR ---
END OF SHIFT NOTE REPORT GIVEN TO MEE MENDEZ PT REMAINED STABLE THROUGHOUT THE NIGHT WITH NO MAJOR EVENTS OVERNIGHT.PT STABLE RESTING IN BED, HR 51, SPO2 98%, RR 17. CALL LIGHT WITHIN EASY REACH.
--- NOTE | 2020-02-08 08:30 | NUR ---
SAT UP IN THE BED AND ATE HER BREAKFAST NO HELP NEEDED
[2020-02-08] MEDS: FERROUS SULFATE 325 MG TAB PO SCH ×2 (08:35→18:00)
[2020-02-08] MEDS: cefTRIAXone 1GM/50ML D5W 50 ML IV SCH (08:35)
--- NOTE | 2020-02-08 09:30 | NUR ---
SITTING UP IN THE BED WATCHING TV
[2020-02-08] MEDS: METOPROLOL TARTRATE 25 MG TAB PO SCH ×2 (10:00→22:00)
[2020-02-08] MEDS: ENOXAPARIN SOD 40 MG/0.4 ML SYRINGE SC SCH ×2 (10:05→22:00)
[2020-02-08] MEDS: FAMOTIDINE 20 MG TAB PO SCH (10:05)
[2020-02-08] MEDS: POTASSIUM CHL 20 Meq TABLET PO SCH (10:05)
[2020-02-08] MEDS: FUROSEMIDE 40 MG/4 ML VIAL IV SCH (10:05)
[2020-02-08] MEDS: BUDESONIDE (INHALATION) 0.5 MG/2 ML NEB NEB SCH ×2 (10:33→18:19)
--- NOTE | 2020-02-08 10:45 | NUR ---
GOTTEN UP INTO THE CHAIR, NO HELP NEEDED
--- NOTE | 2020-02-08 11:30 | NUR ---
SITTING UP IN THE CHAIR TALKING TO HER KIDS ON THE PHONE
--- NOTE | 2020-02-08 12:00 | NUR ---
SITTING UP IN THE CHAIR, MEDICATED FOR PAIN 4/10 TO THE BODY WITH TYLENOL
--- NOTE | 2020-02-08 12:45 | NUR ---
SAT UP IN THE CHAIR AND ATE HER LUNCH
--- NOTE | 2020-02-08 14:24 | NUR ---
DR NAJERA IN TO SEE THE PATIENT AND WROTE NEW ORDERS
--- NOTE | 2020-02-08 15:00 | NUR ---
BLOOD DRAWN FOR CBS AND BMP
--- NOTE | 2020-02-08 15:06 | NUR ---
SITTING UP IN THE BED, TALKING ON HER CELL PHONE
--- NOTE | 2020-02-08 15:30 | NUR ---
WATCHING TV, NO COMPLAINTS
--- NOTE | 2020-02-08 15:38 | NUR ---
NUTRITION ASSESSMENT NOTES Please refer to link notes of nutrition screen form filed under the intervention section of the plan of care for further details. Est. Energy Needs: 2348-9283 kcal (12-15 kcal/kg BW). Est. Protein Needs: 97-122 gms/day (1.2-1.5 gms/kg Adj.BW). Will continue to monitor pertinent labs and reassess nutrient need prn Addendum: 02/08/20 at [address] Amended: Links added.
[2020-02-08 15:41] LABS: BUN/Creatinine Ratio 21.4; Calcium 8.2 mg/dL (8.5-10.1); Potassium 4.8 mmol/L (3.5-5.1)
[2020-02-08 16:03] LABS: Basophils # (auto) 0 10 ^3/uL (0-0.2); Eosinophils # (auto) 0 10 ^3/uL (0-0.8); Hemoglobin 14.4 g/dL (12.2-16.2); Mean Corpuscular Hgb Conc. 32.5 g/dL (32.0-36.0); Monocytes # (auto) 0.5 10 ^3/uL (0-1.3)
[2020-02-08 16:05] LABS: Basophils % (auto) 0.2 % (0.0-2.0); Hematocrit 44.4 % (36.0-46.0); Lymphocytes # (auto) 0.8 10 ^3/uL (0.4-5.4); Lymphocytes % (auto) 6.2 % (10.0-50.0); Mean Corpuscular Hemoglobin 25.4 pg (28.0-32.0); Monocytes % (auto) 3.9 % (0.0-12.0); Neutrophils # (auto) 11.5 10 ^3/uL (1.6-8.6); Neutrophils % (auto) 89.7 % (37.0-80.0); Platelet Count (auto) 254 10^3/uL (140-450); Red Blood Cells 5.69 10^6/uL (4.0-5.20); Red Cell Distribution Width 15.3 % (11.8-14.3); White Blood Cell 12.9 10^3/uL (4.4-10.8)
--- NOTE | 2020-02-08 16:30 | NUR ---
SAYS SHE HAS PAIN AT 4/10 BUT DOESN'T WATT ANY PAIN MEDICATION
--- NOTE | 2020-02-08 17:30 | NUR ---
DR LAL IN TO SEE THE PATIENT NO NEW ORDERS
--- NOTE | 2020-02-08 17:50 | NUR ---
SITTING UP IN THE CHAIR WATCHING TV
--- NOTE | 2020-02-08 18:03 | NUR ---
TEXT DR NAJERA THE RESULTS OF THE CBC AND BMP
--- NOTE | 2020-02-08 18:19 | NUR ---
TX GIVEN VIA AEROGEN Addendum: 02/08/20 at 1825 by VICENTE WOLFF RT Amended: Links added.
--- NOTE | 2020-02-08 18:19 | NUR ---
PT IS ON HIGH FLOW NC Addendum: 02/08/20 at 1825 by VICENTE WOLFF RT Amended: Links added.
--- NOTE | 2020-02-08 18:43 | NUR ---
NO RETURN TEXT FROM DR NAJERA REGARDING THE BLOOD RESULTS, PATIENT SITTING UP IN THE CHAIR EATING HER DINNER, NO COMPLAINTS OF PAIN OR SOB, MID LINE TO THE ANA INTACT FLUSHED AND PATENT, MUSE TO GRAVITY, USES THE BSC, WILL CONTINUE TO MONITOR AND GIVE REPORT TO THE NEXT SHIFT
--- NOTE | 2020-02-08 20:10 | NUR ---
OPENING SHIFT NOTE PT ASSISTED WITH A COMPLETE BED BATH AND MUSE CARE USING CHG WIPES AND WARM WASH CLOTHS. SKIN ASSESSED FOR ANY CHANGES, MOISTURE RELATED REDNESS IN BETWEEN THIGH AREA, CLEANSED, PATTED DRY AND Z-GUARD BARRIER CREAM APPLIED. PARTIAL LINEN CHANGE DONE AND NEW GOWN PLACED ON PT. PT ASSISTED TO BED , TOLERATED ACTIVITY WELL. COMPLETE PHYSICAL ASSESSMENT DONE: SEE INTERVENTIONS. CALL LIGHT GIVEN TO PT, INSTRUCTED ON POC. CONTINUE MONITORING.
--- NOTE | 2020-02-08 22:36 | NUR ---
PT WAS TAKEN OFF OF HIGH FLOW NC AND PLACED ON A REG NC @ 3L. SHE IS TOLERATING IT WELL. NO DISTRESS NOTED. WILL CONTINUE TO MONITOR. Addendum: 02/08/20 at 2239 by VICENTE WOLFF RT Amended: Links added.
[2020-02-09] VITALS: BP 138/85
[2020-02-09] MEDS: ACETAMINOPHEN 500 MG TAB PO PRN (00:15)
[2020-02-09] MEDS: IPRATROPIUM BROM 0.5 MG/2.5ML INH SOL NEB SCH ×6 (02:34→22:17)
[2020-02-09] MEDS: ALBUTEROL SULF 2.5 MG/0.5ML(0.5%) NEB SOLN NEB SCH ×6 (02:34→22:17)
[2020-02-09 03:49] VITALS: BP 103/45
[2020-02-09] MEDS: methylPREDNISolone SOD SUCC 40 MG/ML VL IV SCH ×3 (05:09→21:54)
--- NOTE | 2020-02-09 06:58 | NUR ---
END OF SHIFT NOTE PT RESTING IN BED WITH EYES CLOSED, VSS: RR 14, SPO2 96%, HR 51. PT REMAINED STABLE SHE IS NOW ON 3L NC TOLERATING WELL. WILL CONTINUE MONITORING AND ENDORSE CARE TO DAY SHIFT RN.
[2020-02-09] MEDS: BUDESONIDE (INHALATION) 0.5 MG/2 ML NEB NEB SCH ×2 (07:05→22:17)
[2020-02-09 07:40] VITALS: BP 131/74
--- NOTE | 2020-02-09 07:40 | NUR ---
Opening Shift Note Assumed care of patient, awake and alert, using her cell phone. No S/S of distress/SOB or pain noted, on O2 NC 2 LPM, O2 saturation 88-94%. Instructed on POC and to call for assist PRN, will continue to monitor for changes Q1hr and PRN.
[2020-02-09] MEDS: FERROUS SULFATE 325 MG TAB PO SCH ×2 (07:45→17:11)
--- NOTE | 2020-02-09 08:05 | NUR ---
Patient sitting at the edge of the bed for having breakfast.
--- NOTE | 2020-02-09 08:30 | NUR ---
Patient went to the bedside commode, had BM with soft and green color, then sitting on the chair, stand by assist, continue O2 NC 2 LPM, O2 saturation 88-94%. Patient had 100% of breakfast, no N/V noted.
[2020-02-09] MEDS: FAMOTIDINE 20 MG TAB PO SCH (09:39)
[2020-02-09] MEDS: ENOXAPARIN SOD 40 MG/0.4 ML SYRINGE SC SCH ×2 (09:39→21:54)
[2020-02-09] MEDS: METOPROLOL TARTRATE 25 MG TAB PO SCH (09:41)
--- NOTE | 2020-02-09 09:41 | NUR ---
Patient still sitting on the chair, watching TV, patient stated that doesn't want to take Metoprolol because she didn't take any medication at home. Patient made aware that sometimes her HR 50-80 /min.
--- NOTE | 2020-02-09 11:00 | NUR ---
Patient sitting on the chair, no complaining of pain or SOB noted, continue O2 NC 2 LPM, O2 saturation 92%, HR 60-75 /min SBP 110-120 mmHg. No complaining of chest pain noted.
[2020-02-09 11:40] VITALS: BP 120/73
--- NOTE | 2020-02-09 12:25 | NUR ---
Dr. Eledr at the bedside, seen and examined patient at this tie, plan of care discussed with patient, received order for transfer to [facility], D/C Hopkins's catheter and D/C Metoprolol. Patient agreed with the plan.
--- NOTE | 2020-02-09 12:35 | NUR ---
Beltran catheter dc'd Order to discontinue beltran catheter. Beltran dc'd with clean technique following deflation of balloon. Patient tolerated well with no complaints of pain. Continue care.
--- NOTE | 2020-02-09 12:36 | NUR ---
Patient walking to the restroom by herself, connected to O2 NC 1 LPM, tolerated well.
--- NOTE | 2020-02-09 12:45 | NUR ---
Patient came back from the restroom, connected back to the monitor, no SOB or wheezing noted after having activity, went back to the chair, Lunch tray provided. O2 saturation 92-94% with O2 NC 1 LPM.
--- NOTE | 2020-02-09 12:55 | NUR ---
Dr. Lemons at the bedside, seen and examined patient at this time, plan of care discussed with patient, patient agreed with the plan and verbalized understanding. No new order at this time.
[2020-02-09 13:48] LABS: BUN/Creatinine Ratio 23.1; Calcium 8.4 mg/dL (8.5-10.1); Potassium 4.5 mmol/L (3.5-5.1)
--- NOTE | 2020-02-09 14:20 | NUR ---
Patient sitting on the chair, watching TV, patient made aware that still waiting for the bed.
--- NOTE | 2020-02-09 14:45 | NUR ---
Patient went back from the restroom, patient stated that already passed urine after Hopkins's catheter removal. No bladder distention noted.
--- NOTE | 2020-02-09 15:00 | NUR ---
assessment Patient is a 35 year old female who is alert and oriented. Patients cognitive abilities are intact. Prior to admission patient lived home with family and functioned independently. Patient informed me she is able to care for her own ADLs. Per patient she will return home to her prior living arrangements post discharge and family will transport her home. Patient informed me her PCP is Dr Cotto. Patient feels safe returning home on discharge. Patient may need home oxygen. If no 02 patient has no post discharge needs identified. I informed patient she has a right to speak to a neonatal social worker regarding all care. I informed patient she has a right to participate in any and all discharge planning. Patient does not have a POA and advanced directive. I have offered patient information on POA and advanced directives. I informed the patient the advantages and benefits of having an Advanced Directive. Patient verbalized understanding and agreed to discharge plan. Addendum: 02/09/20 at 1502 by Neelima BAGLEY Amended: Links added.
--- NOTE | 2020-02-09 15:26 | NUR ---
received report from TONI MENDEZ
--- NOTE | 2020-02-09 15:29 | NUR ---
TONI pt transferred to floor ESTEFANY IVERSON transferred to [address] via wheelchair on gambling monitor (Tele #[id number]) and portable 02, NC 1 LPM. Flush Mid line at left upper arm with NS patient, still got blood return. 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 Patient care transferred to Zack MENDEZ.
--- NOTE | 2020-02-09 15:37 | NUR ---
Patient arrived on floor
--- NOTE | 2020-02-09 15:59 | NUR ---
pt rhythm on floor tele 28 sinus rhythm 78
[2020-02-09 17:45] VITALS: BP 146/77
--- NOTE | 2020-02-09 19:00 | NUR ---
Opening Shift Note Assumed care of patient, awake and alert. No S/S of distress/SOB or pain. Instructed on POC and to call for assist PRN, will continue to monitor for changes Q1hr and PRN.
[2020-02-09 22:00] VITALS: BP 134/68
--- NOTE | 2020-02-10 | NUR ---
Rounds Patient in bed asleep with no signs of distress/sob/pain. Will continue to monitor.
[2020-02-10 02:00] VITALS: BP 129/74
[2020-02-10] MEDS: IPRATROPIUM BROM 0.5 MG/2.5ML INH SOL NEB SCH ×4 (02:03→14:13)
[2020-02-10] MEDS: ALBUTEROL SULF 2.5 MG/0.5ML(0.5%) NEB SOLN NEB SCH ×4 (02:03→14:13)
[2020-02-10 05:51] VITALS: BP 109/75
[2020-02-10] MEDS: BUDESONIDE (INHALATION) 0.5 MG/2 ML NEB NEB SCH (06:25)
--- NOTE | 2020-02-10 07:30 | NUR ---
Morning note patient resting in bed with even and unlabored respirations, no distress noted. Instructed patient on POC, fall precautions and to call for assistance as needed. Patient verbalized understanding. Fall precautions in place with call light within reach.
--- NOTE | 2020-02-10 07:30 | NUR ---
Endorsed care to day shift RN.
[2020-02-10 09:00] VITALS: BP 123/76
--- NOTE | 2020-02-10 09:00 | NUR ---
Patient on room air sitting at side of bed with both feet on the ground Patient denies SOB. Patient stated "I feel much better. I'm ready to go. I know I have to wait for the doctor first but I'm ready to go." Respirations even and unlabored, no distress noted.
[2020-02-10] MEDS: FERROUS SULFATE 325 MG TAB PO SCH (09:02)
[2020-02-10] MEDS: ENOXAPARIN SOD 40 MG/0.4 ML SYRINGE SC SCH (09:02)
[2020-02-10] MEDS: methylPREDNISolone SOD SUCC 40 MG/ML VL IV SCH (09:02)
[2020-02-10] MEDS: FAMOTIDINE 20 MG TAB PO SCH (09:07)
--- NOTE | 2020-02-10 13:04 | NUR ---
was at bedside - Dr. Elder
--- NOTE | 2020-02-10 15:33 | NUR ---
Discharge Discharge education and paperwork provided to the patient per MD order. Patient verbalized understanding. Respirations even and unlabored on room air, no distress noted. Midline removed from the ANA with clean technique, catheter intact. Pressure and dressing applied. Patient tolerated well, no bleeding or trauma noted. Telemonitor removed and returned to telemonitor tech. Patient reports having all personal belongings. Patient notified her transportation of discharge. Instructed patient to notify staff once transportation arrives to bedside. Patient verbalized understanding. Patient reports having all personal belongings.
--- NOTE | 2020-02-10 16:04 | NUR ---
Patient's transportation arrived Patient notified staff that transportation has arrived. Patient refused wheelchair. Patient ambulated with a steady gait accompanied by staff member to hospital lobby. Respirations even and unlabored on room air, no distress noted.
== END 2020-02-10 16:04 | disposition home or self-care (01) | DRG 133 ==
LOC: ER 09:06 → TELE 09:07 → TELE-CENTR 15:50 → DOU IN ICU 20:54 → TELE-CENTR 02-09 15:51
PROVIDERS: ADMIT Nurse Practitioner Acute Care; ATTEND Internal Medicine Nephrology
PROC: 5A09357 Assistance with Respiratory Ventilation, Less than 24 Consecutive Hours, Continuous Positive Airway Pressure (ICD-10-PCS; principal; 2020-02-02)
PROC: 5A09357 Assistance with Respiratory Ventilation, Less than 24 Consecutive Hours, Continuous Positive Airway Pressure (ICD-10-PCS; 2020-02-03)
DX: J96.01 Acute respiratory failure with hypoxia (principal); N17.9 Acute kidney failure, unspecified; E87.2 Acidosis; J45.42 Moderate persistent asthma with status asthmaticus; E66.01 Morbid (severe) obesity due to excess calories; E87.1 Hypo-osmolality and hyponatremia; E87.5 Hyperkalemia; J98.11 Atelectasis; D50.9 Iron deficiency anemia, unspecified; F17.210 Nicotine dependence, cigarettes, uncomplicated; G47.30 Sleep apnea, unspecified; Z90.89 Acquired absence of other organs; Z68.44 Body mass index [BMI] 60.0-69.9, adult; Z98.51 Tubal ligation status; Z71.6 Tobacco abuse counseling
CPT/HCPCS: 36415; 36600; 71045; 71275; 80048; 80053; 80061; 81001; 82728; 82805; 83540; 83550; 83605; 83735; 83880; 84132; 84443; 84484; 85025; 85379; 87040; 87804; 93005; 93306; 93970; 94640; 94644; 94660; 96374; 99291; G0378; J0696

== ENCOUNTER 2021-04-30 11:17 | Emergency (ER) | payer MEDICAID ==
[~2021-04-30] VITALS: Ht 162.6 cm; Wt 161.0 kg
[2021-04-30 11:35] LABS: Urine WBC None Seen /hpf (0 - 5)
[2021-04-30 11:49] LABS: Urine Bacteria FEW /hpf (None Seen); Urine Blood Negative /uL (Negative); Urine Mucus FEW (None Seen); Urine Specific Gravity 1.023 (1.001-1.035)
[2021-04-30 11:57] LABS: Eosinophils # (auto) 0.2 10 ^3/uL (0-0.8); Monocytes # (auto) 0.5 10 ^3/uL (0-1.3); Nucleated Red Blood Cells % 0.1 %
[2021-04-30 11:59] LABS: Basophils # (auto) 0.2 10 ^3/uL (0-0.2); Basophils % (auto) 1.6 % (0.0-2.0); Eosinophils % (auto) 1.9 % (0.0-7.0); Hematocrit 41.7 % (36.0-46.0); Hemoglobin 13.7 g/dL (12.2-16.2); Lymphocytes # (auto) 2.8 10 ^3/uL (0.4-5.4); Lymphocytes % (auto) 28.6 % (10.0-50.0); Mean Corpuscular Hemoglobin 25.7 pg (28.0-32.0); Mean Corpuscular Hgb Conc. 32.8 g/dL (32.0-36.0); Mean Corpuscular Volume 78.4 fL (80.0-100.0); Monocytes % (auto) 4.6 % (0.0-12.0); Neutrophils # (auto) 6.2 10 ^3/uL (1.6-8.6); Neutrophils % (auto) 63.3 % (37.0-80.0); Platelet Count (auto) 383 10^3/uL (140-450); Red Blood Cells 5.32 10^6/uL (4.0-5.20); Red Cell Distribution Width 16.6 % (11.8-14.3); White Blood Cell 9.8 10^3/uL (4.4-10.8)
[2021-04-30] MEDS ORDERED: KETOROLAC TROMETH 30 MG/ML 1ML VIAL IV ONE (12:00)
[2021-04-30 12:16] LABS: Albumin 3.4 g/dL (3.4-5.0); BUN/Creatinine Ratio 11.6; Calcium 8.2 mg/dL (8.5-10.1); Potassium 4.4 mmol/L (3.5-5.1)
[2021-04-30 12:18] LABS: Bilirubin, Total 0.7 mg/dL (0.2-1.0); Total Protein 7.2 g/dL (6.4-8.2)
[2021-04-30 13:18] VITALS: BP 165/99
== END 2021-04-30 14:00 | disposition home or self-care (01) ==
LOC: ER 11:17
DX: K80.20 Calculus of gallbladder without cholecystitis without obstruction (principal); E11.9 Type 2 diabetes mellitus without complications; I10 Essential (primary) hypertension; J45.909 Unspecified asthma, uncomplicated; F17.210 Nicotine dependence, cigarettes, uncomplicated; Z98.51 Tubal ligation status
CPT/HCPCS: 36415; 74176; 80053; 81001; 83690; 85025; 96374; 99284; J1885